=== PATIENT | female | born 1980 | race African-American/Black ===

== ENCOUNTER 2018-01-02 05:31 | Emergency (ER) | payer MEDICAID, OTHER ==
[~2018-01-02] VITALS: Ht 157.5 cm; Wt 57.0 kg
[2018-01-02] MEDS ORDERED: KETOROLAC 60MG/2ML VIAL IM ONE (07:30)
[2018-01-02 08:10] VITALS: BP 110/62
== END 2018-01-02 09:30 | disposition home or self-care (01) ==
LOC: ER 05:31
DX: M79.1 Myalgia (principal); H92.09 Otalgia, unspecified ear; D64.9 Anemia, unspecified; E04.1 Nontoxic single thyroid nodule
CPT/HCPCS: 81025; 96372; 99283; J1885

== ENCOUNTER 2018-01-07 23:08 | Emergency (ER) | payer OTHER ==
[~2018-01-07] VITALS: Ht 157.5 cm; Wt 55.0 kg
[2018-01-08] MEDS ORDERED: KETOROLAC 30MG/ML VIAL IV STA (01:36)
[2018-01-08] MEDS ORDERED: SODIUM CHLORIDE 0.9% 1,000 ML IV ONE (01:36)
[2018-01-08 02:41] LABS: BASOPHILS % 0.5 % (0.0-2.0); EOSINOPHILS % 0.6 % (0.0-5.0); HEMATOCRIT. 31.8 % (36.0-48.0); HEMOGLOBIN. 10.1 g/dL (12.0-16.0); MEAN CORPUSCULAR HEMOGLOBIN 25.1 pg (28.0-32.0); MEAN CORPUSCULAR VOLUME 79.3 fL (81.0-99.0); MEAN PLATELET VOLUME 7.7 fl (7.4-10.4); MONOCYTES % 5.5 % (2.0-8.0); NEUTROPHILS % 54.4 % (40.0-76.0); PLATELET 280 x1000/uL (130-400); RED BLOOD CELL COUNT 4.01 mill/uL (4.2-5.4); RED CELL DISTRIBUTION WIDTH 14.3 % (11.6-14.6)
[2018-01-08 02:47] LABS: INR 1.1; PROTHROMBIN TIME 10.8 sec (9.1-11.1)
[2018-01-08 02:48] LABS: CHLORIDE 106 mEq/L (98-107)
[2018-01-08 02:51] LABS: HCG SCREEN NEGATIVE
[2018-01-08 02:56] LABS: CREATINE KINASE 110 IU/L (26-192)
[2018-01-08 03:44] LABS: CLARITY URINE CLEAR (CLEAR); COLOR URINE YELLOW (YELLOW); KETONES URINE NEGATIVE (NEGATIVE); LEUKOCYTE ESTERASE URINE NEGATIVE (NEGATIVE); NITRITE URINE POSITIVE (NEGATIVE); OCCULT BLOOD URINE NEGATIVE (NEGATIVE); PH URINE 6.5 (4.5-8.0); PROTEIN URINE NEGATIVE (NEGATIVE); SPECIFIC GRAVITY URINE 1.009 (1.005-1.030); UROBILINOGEN URINE 0.2 E.U./dL (0.2-1.0)
[2018-01-08 04:07] LABS: *AMPHETAMINES SCREEN URINE NEGATIVE (NEGATIVE); *BARBITURATES SCREEN URINE NEGATIVE (NEGATIVE); *BENZODIAZEPINES SCREEN URINE NEGATIVE (NEGATIVE); *COCAINE SCREEN URINE NEGATIVE (NEGATIVE)
[2018-01-08 04:08] LABS: CANNABINOID URINE SCREEN NEGATIVE (NEGATIVE); METHADONE URINE SCREEN NEGATIVE (NEGATIVE); OPIATES URINE SCREEN NEGATIVE (NEGATIVE); PHENCYCLIDINE URINE SCREEN NEGATIVE (NEGATIVE)
[2018-01-08] MEDS ORDERED: CEFTRIAXONE 1 G PREMIX 50 ML IV ONE (05:15)
[2018-01-08 06:16] VITALS: BP 101/59
== END 2018-01-08 07:00 | disposition home or self-care (01) ==
LOC: ER 23:08
DX: N39.0 Urinary tract infection, site not specified (principal)
CPT/HCPCS: 36415; 80053; 80305; 81003; 81025; 82550; 83605; 83690; 84703; 85025; 85610; 87077; 87086; 87186; 96374; 96375; 99284; J0696; J1885; J7030; Z7610

== ENCOUNTER 2018-05-26 18:45 | Emergency (ER) | payer OTHER ==
[~2018-05-26] VITALS: Ht 157.5 cm; Wt 58.0 kg
[2018-05-26 20:53] LABS: CLARITY URINE CLEAR (CLEAR); COLOR URINE YELLOW (YELLOW); KETONES URINE NEGATIVE (NEGATIVE); LEUKOCYTE ESTERASE URINE NEGATIVE (NEGATIVE); NITRITE URINE NEGATIVE (NEGATIVE); OCCULT BLOOD URINE 1+ (NEGATIVE); PH URINE 6.5 (4.5-8.0); PROTEIN URINE TRACE (NEGATIVE); SPECIFIC GRAVITY URINE 1.021 (1.005-1.030); UROBILINOGEN URINE 0.2 E.U./dL (0.2-1.0)
[2018-05-26] MEDS ORDERED: IBUPROFEN 600MG TABLET PO STA (21:26)
[2018-05-26 22:03] VITALS: BP 106/68
== END 2018-05-26 22:05 | disposition home or self-care (01) ==
LOC: ER 18:45
DX: J06.9 Acute upper respiratory infection, unspecified (principal); M60.9 Myositis, unspecified
CPT/HCPCS: 81025; 87804; 99283

== ENCOUNTER 2018-07-01 22:52 | Emergency (ER) | payer MEDICAID, OTHER ==
[~2018-07-01] VITALS: Ht 157.5 cm; Wt 57.0 kg
[2018-07-02 00:15] LABS: CLARITY URINE CLEAR (CLEAR); COLOR URINE YELLOW (YELLOW); KETONES URINE NEGATIVE (NEGATIVE); LEUKOCYTE ESTERASE URINE NEGATIVE (NEGATIVE); NITRITE URINE NEGATIVE (NEGATIVE); OCCULT BLOOD URINE NEGATIVE (NEGATIVE); PROTEIN URINE NEGATIVE (NEGATIVE); SPECIFIC GRAVITY URINE 1.008 (1.005-1.030)
[2018-07-02 02:24] VITALS: BP 147/68
== END 2018-07-02 02:51 | disposition left against medical advice (07) ==
LOC: ER 22:52
DX: Z53.21 Procedure and treatment not carried out due to patient leaving prior to being seen by health care provider (principal)
CPT/HCPCS: 81025